=== PATIENT | female | born 1980 | race Two or more races ===

== ENCOUNTER 2019-05-02 13:17 | Emergency (ER) | payer OTHER ==
[~2019-05-02] VITALS: Ht 162.6 cm; Wt 64.0 kg
== END 2019-05-02 16:24 | disposition home or self-care (01) ==
LOC: ER 13:17
DX: N30.80 Other cystitis without hematuria (principal)

== ENCOUNTER 2019-06-11 21:22 | Emergency (ER) | payer OTHER ==
[~2019-06-11] VITALS: Ht 160 cm; Wt 64.0 kg
[2019-06-12] MEDS ORDERED: URIN D.S. TABL1 EACH PO (02:03)
[2019-06-12] MEDS ORDERED: CEFUROXIME500 MG PO (02:03)
[2019-06-12] MEDS ORDERED: MONISTAT 315 GM VAG (02:03)
== END 2019-06-12 02:13 ==
LOC: ER 21:22
DX: N39.0 Urinary tract infection, site not specified (principal); R30.0 Dysuria

== ENCOUNTER 2022-03-02 18:31 | Emergency (ER) | payer OTHER ==
[~2022-03-02] VITALS: Ht 160 cm; Wt 62.1 kg
[~2022-03-02 18:31] MED LIST: CEFUROXIME500 MG PO; MONISTAT 315 GM VAG; URIN D.S. TABL1 EACH PO
[2022-03-02] MEDS ORDERED: WELLBUTRIN SR150 MG PO (18:48)
[2022-03-02] MEDS ORDERED: DEXTROAMPHETAMI10 MG PO (18:49)
[2022-03-02] MEDS ORDERED: PRISTIQ ER100 MG PO (18:49)
[2022-03-02] MEDS ORDERED: MACROBID 100 M100 MG PO (22:02)
== END 2022-03-02 22:08 | disposition home or self-care (01) ==
LOC: ER 18:31
DX: N30.90 Cystitis, unspecified without hematuria (principal); Z91.013 Allergy to seafood

== ENCOUNTER 2023-12-26 10:34 | Emergency (ER) | payer OTHER ==
[~2023-12-26] VITALS: Ht 160 cm; Wt 63.5 kg
[~2023-12-26 10:34] MED LIST changes: +DEXTROAMPHETAMI10 MG PO; +MACROBID 100 M100 MG PO; +PRISTIQ ER100 MG PO; +WELLBUTRIN SR150 MG PO
[2023-12-26 15:25] LABS: HEMATOCRIT 34.7 % (36.0-45.00); HEMOGLOBIN 11.5 g/dL (12.0-15.00); MEAN CELL VOLUME 82.2 fL (80.00-100.00); MEAN CORPUSCULAR HEMOGLOBIN 27.2 pg (27.00-32.0); MEAN CORPUSCULAR HGB CONC 33.1 g/dl (32.0-36.0); PLATELET COUNT 226 K/uL (150-450); RED BLOOD COUNT 4.22 M/uL (4.00-6.00)
[2023-12-26 15:49] LABS: ALBUMIN 3.6 gm/dL (3.4-5.0); BILIRUBIN TOTAL 0.88 mg/dL (0.3-1.2); CALCIUM 8.6 mg/dL (8.5-10.1); CREATININE SERUM 0.8 mg/dL (0.55-1.02); GFR 77.57; GLOBULINA 3.7 G/DL (2.4-3.5); POTASSIUM 3.18 mEq/L (3.5-5.1); TOTAL PROTEIN 7.3 gm/dL (6.4-8.2)
[2023-12-26 16:30] LABS: URINE APPEARANCE Clear; URINE BILIRRUBIN Negative (NEGATIVE); URINE BLOOD Large; URINE COLOR Yellow; URINE GLUCOSE Negative (NEGATIVE); URINE LEUKOCYTE Trace; URINE NITRATE Negative; URINE PROTEIN Negative (NEGATIVE); URINE UROBILINOGEN 0.2 E.U./dl
[2023-12-26 16:34] LABS: URINE EPITHELIAL CELLS 11.1 uL (0.0-38.8); URINE RBC 534.5 uL (0.0-20.8); URINE WBC 27.5 uL (0.0-23.2)
== END 2023-12-26 21:00 | disposition home or self-care (01) ==
LOC: ER 10:34
PROVIDERS: Emergency Medicine
DX: N20.1 Calculus of ureter (principal); I10 Essential (primary) hypertension; Z91.013 Allergy to seafood; N20.0 Calculus of kidney